=== PATIENT | male | born 1955 ===

== ENCOUNTER 2018-03-13 23:08 | Emergency (ER) | payer OTHER ==
--- NOTE | 2018-03-14 00:08 | ED PDOC ---
HPI: Psych/Substance Abuse Time Seen by Provider: 03/13/18 23:28 Chief Complaint (Nursing): Alcohol Ingestion Chief Complaint (Provider): Anxiety History Per: Patient History/Exam Limitations: no limitations Onset/Duration Of Symptoms: Days (x 1), Waxing/Waning Suicide/Self Injury Attempted (Context): None Modifying Factor(s): Alcohol Additional Complaint(s): 63 year old male with a history of hypertension presents to the ED with anxiety that began today. He reports that he was drinking today and since 9:30 pm he has experience five episodes of shaking, shortness of breath and heart palpitations. Each episode lasted for a few minutes and then resolved spontaneously. Patient admits that he has been under a lot of stress lately due to work. While giving history, he reports that he feels fine in between each episode. he also states that he only takes his hypertension medications sometimes. Denies drinking alcohol excessively regularly, suicidal ideation, homicidal ideation and hallucinations. PMD: Dr. Bassam Torres Past Medical History Reviewed: Historical Data, Nursing Documentation, Vital Signs Vital Signs: Last Vital Signs Temp 97.8 F 03/13/18 23:16 Pulse 120 H 03/13/18 23:16 Resp 16 03/13/18 23:16 BP 162/114 H 03/13/18 23:16 Pulse Ox 97 03/13/18 23:16 - Medical History PMH: No Chronic Diseases - Surgical History Surgical History: No Surg Hx - Allergies Allergies/Adverse Reactions: Allergies Allergy/AdvReac Type Severity Reaction Status Date / Time No Known Allergies Allergy Verified 03/13/18 23:16 Review of Systems ROS Statement: Except As Marked, All Systems Reviewed And Found Negative Constitutional: Positive for: Other (5 episodes of shaking) Cardiovascular: Positive for: Palpitations Respiratory: Positive for: Shortness of Breath Psych: Negative for: Suicidal ideation, Other (homicidal ideation) Physical Exam - Reviewed Nursing Documentation Reviewed: Yes Vital Signs Reviewed: Yes - Physical Exam Appears: Positive for: No Acute Distress (tired appearing) Head Exam: Positive for: ATRAUMATIC, NORMAL INSPECTION, NORMOCEPHALIC Skin: Positive for: Normal Color, Warm, Dry Eye Exam: Positive for: EOMI, Normal appearance, PERRL Neck: Positive for: Normal, Painless ROM, Supple Cardiovascular/Chest: Positive for: Regular Rate, Rhythm. Negative for: Murmur Respiratory: Positive for: Normal Breath Sounds. Negative for: Respiratory Distress Gastrointestinal/Abdominal: Positive for: Normal Exam, Soft. Negative for: Tenderness Extremity: Positive for: Normal ROM (upper and lower extremities). Negative for: Deformity Neurologic/Psych: Positive for: Alert, Oriented (x 3), Mood/Affect (anxious mood and flat affect), Other (slightly slurred speech). Negative for: Motor/Sensory Deficits - ECG O2 Sat by Pulse Oximetry: 97 (RA) Pulse Ox Interpretation: Normal Medical Decision Making Medical Decision Makin:41 Impression: alcohol intoxication and palpitations Differential diagnoses include but are not limited to: panic attack, electrolyte abnormality and dehydration Initial Plan: --Alcohol --EKG --CMP --UDS --Magnesium --Phosphate --TSH --Urine dip --Ativan 1 mg IVP 23:50 Patient suddenly started feeling palpations, began to hyperventilate and scream "Are you going to let me here?". 2 mg of Ativan ordered. 00:00 Patient will be transferred to Dr. Coello pending workup and reevaluation. - Scribe Attestation: Documented by Francisca Denson acting as a scribe for Rena Gray MD Provider Scribe Attestation: All medical record entries made by the Scribe were at my direction and personally dictated by me. I have reviewed the chart and agree that the record accurately reflects my personal performance of the history, physical exam, medical decision making, and the department course for this patient. I have also personally directed, reviewed, and agree with the discharge instructions and disposition. Disposition - Patient ED Disposition Is Patient to be Admitted: Transfer of Care - Disposition Disposition: Transfer of Care Disposition Time: 00:00 Patient Signed Over To: Brittny Coello
[2018-03-14 00:32] LABS: BASO # 0.1 K/uL (0.0-0.2); EOS # 0.1 K/uL (0.0-0.7); EOS % 2.5 % (0.0-4.0); HEMOGLOBIN 14.6 g/dL (12.0-18.0); LYMPH # 2.4 K/uL (1.0-4.3); LYMPH % 44.4 % (20.0-40.0); MEAN CELL VOLUME 93.4 fl (80.0-94.0); MEAN CORPUSCULAR HEMOGLOBIN 31.4 pg (27.0-31.0); MEAN CORPUSCULAR HGB CONC 33.7 g/dL (33.0-37.0); MEAN PLATELET VOLUME 8.5 fl (7.2-11.7); MONO # 0.7 K/uL (0.0-0.8); MONO % 12.7 % (0.0-10.0); NEUT # 2.1 K/uL (1.8-7.0); NEUT % 39.4 % (50.0-75.0); NRBC % 0.2 % (0.0-0.0); RBC 4.65 Mil/uL (4.40-5.90); RED CELL DISTRIBUTION WIDTH 13.8 % (11.5-14.5); WHITE BLOOD COUNT 5.5 K/uL (4.8-10.8)
[2018-03-14 00:44] LABS: ALB/GLOB RATIO 1.4 (1.0-2.1); ALBUMIN 4.6 g/dL (3.5-5.0); ALT/SGPT 145 U/L (21-72); AST/SGOT 193 U/L (17-59); BLOOD UREA NITROGEN 11 mg/dl (9-20); CALCIUM 9.8 mg/dL (8.4-10.2); GFR NON-AFRICAN AMERICAN > 60
--- NOTE | 2018-03-14 02:12 | ED PDOC ---
- Laboratory Results Result Diagrams: 03/13/18 23:55 03/13/18 23:55 - ECG O2 Sat by Pulse Oximetry: 97 (RA) Pulse Ox Interpretation: Normal Medical Decision Making Medical Decision Makin --Care endorsed to this provider pending further workup and reevaluation. 04:45 Patient is now awake, alert, ambulatory and oriented His is present in the room and will escort him home. He denies pain and discomfort Will follow with PMD in 1 week Also discussed elevated liver enzymes and risk of liver damage with continued drinking. Scribe Attestation: Documented by Francisca Denson acting as a scribe for Brittny Coello MD Provider Scribe Attestation: All medical record entries made by the Scribe were at my direction and pers onally dictated by me. I have reviewed the chart and agree that the record accurately reflects my personal performance of the history, physical exam, medical decision making, and the department course for this patient. I have also personally directed, reviewed, and agree with the discharge instructions and disposition. Disposition - Clinical Impression Clinical Impression: Alcohol abuse with intoxication, Alcoholic liver damage - Disposition Condition: IMPROVED Additional Instructions: Do not drink alcohol as it is damaging your health. Seek professional help for rehabilitation/detox. Follow up with your primary medical doctor. Instructions: Alcohol Use - When Is Drinking a Problem?, Alcohol Abuse and Alcoholism (DC), Effects of Alcohol on Your Health Forms: [employer] (Armenian) Print Language: MALTESE
[2018-03-14 02:54] LABS: BARBITURATES, UR NEGATIVE (NEGATIVE); BENZODIAZEPINES, UR NEGATIVE (NEGATIVE); OPIATES, UR NEGATIVE (NEGATIVE); PHENCYCLIDINE, UR NEGATIVE (NEGATIVE)
[2018-03-14 05:28] VITALS: BP 138/78; PULSE 86; RESP 16; TEMP 98.2; O2SAT 98
--- NOTE | 2018-03-15 03:12 | CARD ---
APPROVED REPORT Date of service: 03/14/2018 EKG Measurement Heart [id number] <Conclusion> Normal sinus rhythm Normal ECG
== END 2018-03-14 05:15 | disposition home or self-care (01) ==
LOC: H.ER 23:08
DX: F10.129 Alcohol abuse with intoxication, unspecified (principal); K70.9 Alcoholic liver disease, unspecified